=== PATIENT | male | born 1970 | race Hispanic/Latino ===

== ENCOUNTER 2018-07-02 13:47 | Observation (INO) | payer SELFPAY ==
[~2018-07-02] VITALS: Ht 180.3 cm; Wt 235.5 kg
[2018-07-02 15:20] LABS: BASOPHILS # (AUTO) 0.1 (0.0-0.1); BASOPHILS % 0.6 % (0.0-1.0); EOSINOPHILS # (AUTO) 0.3 (0.0-0.4); EOSINOPHILS % 3.4 % (0.0-6.0); HEMATOCRIT 39.1 % (38.2-49.6); HEMOGLOBIN 12.4 g/dL (14.0-18.0); LYMPHOCYTES # (AUTO) 1.7 (1.0-3.2); MEAN CORPUSCULAR HEMOGLOBIN 28.2 pg (28-32); MEAN CORPUSCULAR HGB CONC 31.7 g/dL (31-35); MEAN CORPUSCULAR VOLUME 89.1 fL (81-99); MONOCYTES # (AUTO) 0.6 (0.2-0.8); MONOCYTES % 6.5 % (4.4-11.3); NEUTROPHILS # (AUTO) 6.7 (2.1-6.9); PLATELET COUNT 233 x10e3/uL (140-360); RED BLOOD COUNT 4.39 x10e6/uL (4.3-5.7); RED CELL DISTRIBUTION WIDTH 14.1 % (11.7-14.4)
[2018-07-02 15:40] LABS: ALANINE AMINOTRANSFERASE 13 IU/L (0-55); ALBUMIN 2.6 g/dL (3.5-5.0); ALBUMIN/GLOBULIN RATIO 0.6 (0.8-2.0); ALKALINE PHOSPHATASE 46 IU/L (40-150); ANION GAP 12.8 mmol/L (8-16); BLOOD UREA NITROGEN 11 mg/dL (7-26); BUN/CREATININE RATIO 11 (6-25); CALCIUM 8.6 mg/dL (8.4-10.2); CARBON DIOXIDE 22 mmol/L (22-29); CHLORIDE 101 mmol/L (98-107); CREATININE, SERUM 1.02 mg/dL (0.72-1.25); EST GLOMERULAR FILTRATION RATE > 60 ML/MIN (60-); GLUCOSE 100 mg/dL (74-118); POTASSIUM 3.8 mmol/L (3.5-5.1); SODIUM 132 mmol/L (136-145)
[2018-07-02] MEDS: CLINDAMYCIN PHOS 900MG/ D5W 50 50 ML IV SCH (16:22)
[2018-07-02] MEDS: MORPHINE SULFATE INJ 4 MG/ML INJ IV PRN ×2 (17:39→23:45)
[2018-07-02] MEDS: ONDANSETRON HCL INJ 2 MG/ML VIAL IV PRN ×2 (17:39→23:45)
[2018-07-02 22:17] VITALS: BP 139/72
[2018-07-03] VITALS (10 sets, daily range): BP systolic 114–138; BP diastolic 65–85
[2018-07-03] MEDS ORDERED: SODIUM CHLORIDE 0.9% 250ML 250 ML ONE (00:11)
[2018-07-03] MEDS: CLINDAMYCIN PHOS 900MG/ D5W 50 50 ML IV SCH ×4 (00:39→18:30)
[2018-07-03] MEDS ORDERED: POTASSIUM CHLORIDE 10 MEQ TABCR PO ONE (09:15)
[2018-07-03] MEDS ORDERED: FUROSEMIDE 40 MG TAB PO ONE (09:15)
[2018-07-03] MEDS ORDERED: BALSAM PERU/CASTOR OIL 60 GM OINT...G. TP PRN (17:00)
[2018-07-04] VITALS: BP 136/63
[2018-07-04 04:00] VITALS: BP 122/57
[2018-07-04] MEDS: CLINDAMYCIN PHOS 900MG/ D5W 50 50 ML IV SCH ×3 (06:06→12:04)
[2018-07-04 07:31] VITALS: BP 129/74
[2018-07-04] MEDS: FUROSEMIDE 40 MG TAB PO SCH ×2 (08:15→08:23)
[2018-07-04] MEDS: POTASSIUM CHLORIDE 10 MEQ TABCR PO SCH ×2 (08:15→08:23)
[2018-07-04 08:21] VITALS: BP 129/74
[2018-07-04] MEDS ORDERED: BALSAM PERU/CASTOR OIL 5 GM OINT...G. TP SCH (09:00)
[2018-07-04 12:06] VITALS: BP 176/70
--- NOTE | 2018-07-04 14:48 | Discharge Summary ---
FINAL DIAGNOSES 1. Noncompliance to treatment of bilateral lower extremities with lymphedema. 2. Elmmh-dr-pirjfkk venous stasis ulcer of the right lower extremity with infection. 3. Morbid obesity. 4. Bilateral lower extremity lymphedema. SUMMARY: This is a 48-year-old male who is going to wound care in the [facility]. Apparently, he came to [facility] and thought that the social worker assistant may help him with his application for disability. Patient has chronic lymphedema of bilateral extremities, worse on the right than the left. Now, he had drainage to the right lower extremity. Of note, the patient is followed by the wound care clinic at the [facility]. Advised the patient to follow up with the clinic. Dressing changes. Patient is stable. He does have an appointment tomorrow with the clinic. He will discharge on clindamycin 300 mg 4 times a day for 10 days and Lasix 40 mg once a day, and potassium 20 mEq daily. All instructions given. The patient will discharge home today. Job#: [id number] MIGUEL
== END 2018-07-04 16:05 | disposition home or self-care (01) ==
LOC: ER 13:47 → ERHOLD 16:26 → IMCU 21:38 → MED/SURG2 07-03 22:41
PROVIDERS: ADMIT Internal Medicine; ATTEND Internal Medicine
DX: L03.115 Cellulitis of right lower limb (principal); E66.01 Morbid (severe) obesity due to excess calories; Z68.45 Body mass index [BMI] 70 or greater, adult; I89.0 Lymphedema, not elsewhere classified; Z91.19 Patient's noncompliance with other medical treatment and regimen; I83.012 Varicose veins of right lower extremity with ulcer of calf; L97.211 Non-pressure chronic ulcer of right calf limited to breakdown of skin
CPT/HCPCS: 36415; 80053; 83605; 85025; 87040; 99285; G0378 ×3; J2270 ×2; J2405 ×2; J7050